=== PATIENT | male | born 1990 | race Caucasian/White ===

== ENCOUNTER 2024-12-31 20:55 | Emergency (ER) | payer OTHER ==
[2024-12-31 21:10] VITALS: BP 133/73; PULSE 67; RESP 20; TEMP 98.4; BMI 27.8
== END 2024-12-31 23:22 | disposition home or self-care (01) ==
LOC: JER 20:55
DX: R07.2 Precordial pain (principal)
CPT/HCPCS: 71046-TC-FY; 93005; 93010; 99284-25